=== PATIENT | female | born 1970 | race Two or more races ===

== ENCOUNTER 2018-08-29 17:53 | Emergency (ER) | payer MEDICAID ==
[~2018-08-29] VITALS: Ht 157.5 cm; Wt 59.9 kg
[~2018-08-29 17:53] MED LIST: COL100 PO; FER300 PO; VITC PO
[2018-08-29 18:04] VITALS: Ht 157.5 cm; Wt 59.9 kg
[2018-08-29 20:25] LABS: BASOPHIL % 0.4 % (0-2); PLATELET COUNT 262 x10^3mcL (130-400); RED CELL DISTRIBUTION WIDTH 13.3 % (11.5-14.5)
[2018-08-29 20:26] LABS: CALCIUM 8.5 mg/dL (8.5-10.1); CARBON DIOXIDE 31.6 mmol/L (21-32); CHLORIDE SERUM 106 mmol/L (98-107); CREATININE SERUM 0.7 mg/dL (0.6-1.0); GFR1 > 60 mL/min; GLUCOSE SERUM 103 mg/dL (74-106); POTASSIUM SERUM 3.5 mmol/L (3.5-5.1); SODIUM SERUM 143 mmol/L (136-145)
[2018-08-29 20:31] LABS: ALBUMIN 3.6 g/dL (3.4-5.0); ALKALINE PHOSPHATASE 155 U/L (46-116); ALT/SGPT 26 U/L (14-59); AST/SGOT 19 U/L (15-37); BILIRUBIN TOTAL 0.33 mg/dL (0.20-1.00)
[2018-08-29 21:57] VITALS: BP 101/66
== END 2018-08-29 21:57 | disposition home or self-care (01) ==
LOC: ED 17:53
PROVIDERS: Emergency Medicine
DX: G43.909 Migraine, unspecified, not intractable, without status migrainosus (principal); R42 Dizziness and giddiness
CPT/HCPCS: J1200; J2765; J7030

== ENCOUNTER 2018-12-07 08:18 | Emergency (ER) | payer MEDICAID ==
[~2018-12-07] VITALS: Ht 157.5 cm; Wt 61.2 kg
[2018-12-07 08:24] VITALS: Ht 157.5 cm; Wt 61.2 kg
[2018-12-07 10:42] VITALS: BP 120/73
== END 2018-12-07 11:34 | disposition home or self-care (01) ==
LOC: ED 08:18
DX: N60.12 Diffuse cystic mastopathy of left breast (principal); N60.11 Diffuse cystic mastopathy of right breast
CPT/HCPCS: 76641

== ENCOUNTER 2018-12-16 09:54 | Emergency (ER) | payer MEDICAID ==
[~2018-12-16] VITALS: Ht 152.4 cm; Wt 61.0 kg
[2018-12-16 10:02] VITALS: BP 120/77; Ht 152.4 cm; Wt 61.0 kg
== END 2018-12-16 12:22 | disposition home or self-care (01) ==
LOC: ED 09:54
DX: M54.42 Lumbago with sciatica, left side (principal)
CPT/HCPCS: J1885